=== PATIENT | female | born 1960 | race Caucasian/White ===

== ENCOUNTER 2021-08-24 14:59 | Emergency (ER) | payer BC ==
[2021-08-24 15:07] VITALS: RESP 18; TEMP 97.7
--- NOTE | 2021-08-24 17:13 | ED ---
General Adult HPI - General Chief complaint: Upper Respiratory Infection Stated complaint: covid+/wants infusion Time Seen by Provider: 08/24/21 17:00 Source: patient, RN notes reviewed, old records reviewed Mode of arrival: ambulatory Limitations: no limitations - History of Present Illness Initial comments: Well-appearing 60-year-old female, alert and oriented 4, presents to the emergency room with complaints of testing positive for coronavirus on Wednesday. Patient states that her symptoms are mild and started on Wednesday with burning, runny nose and headache. She states that she has no symptoms at this time. She took another test on Wednesday to confirm that the test was actually positive and it was positive. She has not been vaccinated. She has no medical history, she does not take any medications on a daily basis other than vitamin C, vitamin D and zinc and tumeric. She is a nonsmoker. -: days(s) (7) Severity scale (1-10): 0 Associated Symptoms: denies other symptoms Treatments Prior to Arrival: other (tylenol) - Related Data Allergies Allergy/AdvReac Type Severity Reaction Status Date / Time No Known Allergies Allergy Verified 08/24/21 15:07 Review of Systems ROS Statement: Those systems with pertinent positive or pertinent negative responses have been documented in the HPI. ROS Other: All systems not noted in ROS Statement are negative. Past Medical History Past Medical History: No Reported History History of Any Multi-Drug Resistant Organisms: None Reported Past Surgical History: Tubal Ligation Past Psychological History: Anxiety Smoking Status: Current every day smoker Past Alcohol Use History: None Reported Past Drug Use History: None Reported General Exam Limitations: no limitations General appearance: alert, in no apparent distress Head exam: Present: atraumatic, normocephalic, normal inspection Eye exam: Present: normal appearance, EOMI ENT exam: Present: normal exam, normal oropharynx, mucous membranes moist Neck exam: Present: normal inspection, full ROM. Absent: tenderness, meningismus, lymphadenopathy, thyromegaly Respiratory exam: Present: normal lung sounds bilaterally. Absent: respiratory distress, wheezes, rales, rhonchi, stridor, chest wall tenderness, accessory muscle use Cardiovascular Exam: Present: regular rate, normal rhythm, normal heart sounds. Absent: systolic murmur, diastolic murmur, rubs, gallop, clicks GI/Abdominal exam: Present: soft, normal bowel sounds. Absent: distended, tenderness, guarding, rebound, rigid Extremities exam: Present: normal inspection, full ROM, normal capillary refill. Absent: tenderness, pedal edema, joint swelling, calf tenderness Back exam: Present: normal inspection, full ROM. Absent: tenderness, CVA tenderness (R), CVA tenderness (L), rash noted Neurological exam: Present: alert, oriented X3, normal gait Psychiatric exam: Present: normal affect, normal mood Skin exam: Present: warm, dry, intact, normal color. Absent: rash Course Vital Signs 08/24/21 08/24/21 15:03 17:23 Temperature 97.7 F Pulse Rate 78 80 Respiratory 18 18 Rate Blood Pressure 178/85 143/83 O2 Sat by Pulse 99 98 Oximetry Medical Decision Making - Medical Decision Making Patient presents to the emergency room with complaints of testing positive for coronavirus on Wednesday and again on Wednesday. She states that her symptoms started on Wednesday with a headache and a runny nose have since resolved. She states she took an additional test on Wednesday to confirm that she was actually positive since she had no symptoms and it was positive. She is coming to the emergency room by suggestion of family to get monoclonal antibodies since she has not been vaccinated. I did explain to the patient that she has no medical history and does not meet criteria for monoclonal antibodies. She is a nonsmoker. Does not take any prescribed medications on a daily basis. She is 7 days from initial symptom onset and is symptom free at this time. She is agreeable to being discharged home and follow up with primary care doctor as needed. She states that she does have a primary care doctor appointment in November. I did tell her to return to the emergency room with any new or worsening symptoms. Case was discussed with Dr. Schulte. Disposition Clinical Impression: COVID-19 Disposition: HOME SELF-CARE Condition: Good Instructions (If sedation given, give patient instructions): Coronavirus Disease 2019 (COVID-19) Additional Instructions: Continue taking your vitamin C, vitamin D and zinc. Return to the emergency room with any new or concerning symptoms. Self quarantine for 10 days from symptom onset and 24 hours without. Is patient prescribed a controlled substance at d/c from ED?: No Time of Disposition: 17:12
[2021-08-24 17:34] VITALS: BP 143/83; PULSE 80
== END 2021-08-24 17:30 | disposition home or self-care (01) ==
LOC: EC 14:59
DX: U07.1 COVID-19 (principal); F41.9 Anxiety disorder, unspecified; F17.200 Nicotine dependence, unspecified, uncomplicated; Z98.51 Tubal ligation status
CPT/HCPCS: 99283

== ENCOUNTER → 2021-12-19 | Outpatient (CLI) | payer BC ==
--- NOTE | 2021-12-19 08:40 | XR ---
EXAMINATION TYPE: XR foot complete RT DATE OF EXAM: 12/19/2021 CLINICAL HISTORY: Palpable bump for several weeks at base of fifth metatarsal TECHNIQUE: Frontal, lateral, and oblique images of the right foot are obtained. COMPARISON: None FINDINGS: Focal approximately 1.3 cm soft tissue prominence along the lateral aspect of the fifth me tatarsal head on frontal and oblique images less well-seen on lateral view. No adjacent osseous erosi on or bony destruction. There is no acute fracture/dislocation evident in the right foot. Slight valencia ux valgus positioning first metatarsophalangeal joint. Tiny inferior calcaneal spur. IMPRESSION: As above. Soft tissue lesion thought present. Need to further investigate with ultrasound and/or MRI should be based on clinical correlation.
== END | disposition home or self-care (01) ==
LOC: RADXRMAIN 07:26
PROVIDERS: ATTEND Internal Medicine
DX: M79.89 Other specified soft tissue disorders (principal)

== ENCOUNTER → 2022-01-06 | Outpatient (CLI) | payer BC ==
--- NOTE | 2022-01-21 12:31 | MM ---
Reason for exam: screening (asymptomatic). Last mammogram was performed 1 year and 4 months ago. History: Patient is postmenopausal. Physical Findings: A clinical breast exam by your physician is recommended on an annual basis and results should be correlated with mammographic findings. MG Screening Mammo w CAD Bilateral CC and MLO view(s) were taken. Prior study comparison: September 16, 2020, mammogram, performed at [place]. July 24, 2019, mammogram, performed at [place]. The breast tissue is heterogeneously dense. This may lower the sensitivity of mammography. Focal asymmetry inner upper left breast zone A/B. ASSESSMENT: Incomplete: need additional imaging evaluation, BI-RAD 0 RECOMMENDATION: Special view mammogram of the left breast. If lesion persists on supplemental views, image directed ultrasound is recommended. [facility] will attempt to contact patient to return for supplemental views and ultrasound if indicated.
== END | disposition home or self-care (01) ==
LOC: RADMAMWWP 08:57
PROVIDERS: ATTEND Internal Medicine
DX: Z12.31 Encounter for screening mammogram for malignant neoplasm of breast (principal); Z78.0 Asymptomatic menopausal state
CPT/HCPCS: 77067

== ENCOUNTER → 2022-02-03 | Outpatient (CLI) | payer BC ==
--- NOTE | 2022-02-03 14:04 | MM ---
Reason for exam: additional evaluation requested from abnormal screening. Last mammogram was performed 1 month ago. History: Patient is postmenopausal. Physical Findings: A clinical breast exam by your physician is recommended on an annual basis and results should be correlated with mammographic findings. MG 3D Work Up W/Cad LT Spot compression CC and LM view(s) were taken of the left breast. Prior study comparison: January 06, 2022, bilateral MG screening mammo w CAD. September 16, 2020, mammogram, performed at [place]. The breast tissue is heterogeneously dense. This may lower the sensitivity of mammography. No distinct lesion persists on additional images. Results were given to the patient verbally at the time of the exam. ASSESSMENT: Negative, BI-RAD 1 RECOMMENDATION: Return to routine screening mammogram schedule for both breasts. Back on schedule.
== END | disposition home or self-care (01) ==
LOC: RADMAMWWP 13:13
PROVIDERS: ATTEND Internal Medicine
DX: R92.8 Other abnormal and inconclusive findings on diagnostic imaging of breast (principal); Z78.0 Asymptomatic menopausal state
CPT/HCPCS: 77061; 77065

== ENCOUNTER → 2023-02-18 | Outpatient (CLI) | payer OTHER ==
--- NOTE | 2023-02-18 19:21 | MM ---
Reason for Exam: Screening (asymptomatic). Last mammogram was performed 1 year(s) and 1 month(s) ago. Patient History: Menarche at age 14. First Full-Term at age 21. Postmenopausal. Patient has history of breast feeding. Risk Values: Estelita 5 year model risk: 1.3%. NCI Lifetime model risk: 6.4%. Prior Study Comparison: 07/24/2019 Screening Mammogram, [place]. 09/16/2020 Screening Mammogram, [place]. 01/06/2022 Bilateral Screening Mammogram, [facility]. 02/03/2022 Left Diagnostic Mammogram, [facility]. Tissue Density: The breast tissue is heterogeneously dense. This may lower the sensitivity of mammography. Findings: Analyzed By CAD. There is no suspicious group of microcalcifications or new suspicious mass in either breast. Overall Assessment: Negative, BI-RAD 1 Management: Screening Mammogram of both breasts in 1 year. . Patient should continue monthly self-breast exams. A clinical breast exam by your physician is recommended on an annual basis. This exam should not preclude additional follow-up of suspicious palpable abnormalities. Note on Estelita scores and lifetime risk: 1. A Estelita score greater than 3% is considered moderate risk. If this is the case, consider specialist referral to assess eligibility for a risk reducing agent. 2. If overall lifetime risk for the development of breast cancer is 20% or higher, the patient may qualify for future screening with alternating mammogram and breast MRI. Electronically signed and approved by: Scooter Ahumada M.D. Radiologist
== END | disposition home or self-care (01) ==
LOC: RADMAMWWP 07:47
PROVIDERS: ATTEND Internal Medicine
DX: Z12.31 Encounter for screening mammogram for malignant neoplasm of breast (principal); Z78.0 Asymptomatic menopausal state
CPT/HCPCS: 77063; 77067

== ENCOUNTER 2023-07-06 08:34 | Day surgery (SDC) | payer OTHER ==
[2023-07-02 08:51] VITALS: BMI 24.7
[~2023-07-06 08:34] MED LIST: LACTATED RINGERS 1,000 ML IV SCH
[2023-07-06 09:04] VITALS: TEMP 97
[2023-07-06] MEDS ORDERED: PROPOFOL 10 MG/ML 20 ML VIAL IV ONE (09:53)
--- NOTE | 2023-07-06 10:16 | P.PCN ---
Date of Procedure: 07/06/23 Procedure(s) Performed: BRIEF HISTORY: Patient is a 62-year-old pleasant female scheduled for an elective colonoscopy as a part of screening for colon cancer. PROCEDURE PERFORMED: Colonoscopy. PREOPERATIVE DIAGNOSIS: Screening for colon cancer. IV sedation per Anesthesia. PROCEDURE: After informed consent was obtained, the patient, was brought into the endoscopy unit. IV sedation was administered by Anesthesia under continuous monitoring. Digital rectal examination was normal. Initially the Olympus CF-160 flexible video colonoscope was then inserted in the rectum, gradually advanced into the cecum without any difficulty. Careful examination was performed as the scope was gradually being withdrawn. Ileocecal valve and the appendiceal orifice were visualized and appeared normal. Prep was excellent. Mucosa of the cecum, ascending colon, transverse colon, descending colon, sigmoid colon, and rectum appeared normal. At her sigmoid diverticula cyst. Retroflexion was performed in the rectum and no lesions were seen. The patient tolerated the procedure well. IMPRESSION: Normal-appearing colon from rectum to cecum with no evidence of colorectal neoplasia. Scattered sigmoid diverticulosis RECOMMENDATIONS: Findings of this examination were discussed with the patient as well as her family. She was advised to have a repeat screening colonoscopy in 10 years..
[2023-07-06 10:41] VITALS: BP 129/66; PULSE 45; RESP 18
== END 2023-07-06 11:00 | disposition home or self-care (01) ==
LOC: ORWHC2ENDO 08:34
PROVIDERS: ATTEND Internal Medicine Gastroenterology
DX: Z12.11 Encounter for screening for malignant neoplasm of colon (principal); K57.30 Diverticulosis of large intestine without perforation or abscess without bleeding; E78.5 Hyperlipidemia, unspecified; Z91.013 Allergy to seafood; Z91.041 Radiographic dye allergy status; Z79.899 Other long term (current) drug therapy
CPT/HCPCS: 45378; J2704

== ENCOUNTER → 2023-12-14 | Outpatient (CLI) | payer OTHER ==
--- NOTE | 2023-12-14 15:36 | US ---
EXAMINATION TYPE: US carotid duplex BILAT DATE OF EXAM: 12/14/2023 COMPARISON: NONE CLINICAL INDICATION: Female, 63 years old with dizziness, history of I65.23 BILATERAL CAROTID ARTERY STENOSIS TECHNIQUE: Carotid duplex ultrasound examination. Indirect Doppler criteria was utilized. FINDINGS: EXAM MEASUREMENTS: RIGHT: Peak Systolic Velocity (PSV) cm/sec ----- Right CCA: 77.6 ----- Right ICA: 95.2 ----- Right ECA: 92.7 ICA/CCA ratio: 1.2 RIGHT: End Diastole cm/sec ----- Right CCA: 23.7 ----- Right ICA: 36.9 ----- Right ECA: 16.3 LEFT: Peak Systolic Velocity (PSV) cm/sec ----- Left CCA: 86.0 ----- Left ICA: 110.6 ----- Left ECA: 20.4 ICA/CCA ratio: 1.3 LEFT: End Diastole cm/sec ----- Left CCA: 28.4 ----- Left ICA: 42.4 ----- Left ECA: 20.4 VERTEBRALS (direction of flow): Right Vertebral: Antegrade Left Vertebral: Antegrade Rhythm: Normal [employer] NOTES: No significant stenosis seen IMPRESSION: No hemodynamically significant internal carotid artery stenosis on either side. Criteria for Assigning % of Stenosis / Diameter reduction (Estimation based on the indirect measurements of the internal carotid artery velocities (ICA PSV). 1. Normal (no stenosis)=ICA PSV < 125 cm/s: ratio < 2.0: ICA EDV<40 cm/s. 2. Less than 50% stenosis=ICA PSV < 125 cm/s: ratio < 2.0: ICA EDV<40 cm/s. 3. 50 to 69% stenosis=ICA PSV of 125 to 230 cm/s: ration 2.0 ? 4.0: ICA EDV 40-100 cm/s. 4. Greater than 70% stenosis to near occlusion= ICA PSV > 230 cm/s: ratio > 4.0: ICA EDV > 100 cm/s. 5. Near occlusion= ICA PSV velocities may be low or undetectable: variable ratio and ICA EDV. 6. Total occlusion=unable to detect flow.
--- NOTE | 2023-12-14 19:16 | BD ---
EXAMINATION TYPE: Axial Bone Density DATE OF EXAM: 12/14/2023 CLINICAL HISTORY: 63 years old Female. ICD-10 CODE: M85.851 OSTEOPENIA OF RIGHT HIP Height: 67.5 Weight: 171 FRAX RISK QUESTIONS: Family History (Parent hip fracture): no History of Fracture in Adulthood: no Secondary Osteoporosis: no RISK FACTORS HISTORY OF: Surgery to Spine/Hip(right/left)/Wrist (right/left): no MEDICATIONS: Thyroid Medications: no Osteoporosis Medications: no EXAM MEASUREMENTS: Bone mineral densitometry was performed using the [employer]. Bone mineral density as measured about the Lumbar spine is: ----- L1-L4(G/cm2): 1.140 T Score Values are as follows: ----- L1: -0.5 ----- L2: -0.4 ----- L3: -0.5 ----- L4: -0.2 ----- L1-L4: -0.3 Z Score Values are as follows: ----- L1: 0.4 ----- L2: 0.5 ----- L3: 0.4 ----- L4: 0.8 ----- L1-L4: 0.6 Bone mineral density baseline Bone mineral density about the R hip (g/cm2): 1.036 Bone mineral density about the L hip (g/cm2): 1.062 T Score values are as follows: -----R Neck: -0.9 -----L Neck: -0.6 -----R Total: 0.2 -----L Total: 0.4 Z Score values are as follows: -----R Neck: 0.1 -----L Neck: 0.5 -----R Total: 1.0 -----L Total: 1.2 Bone mineral density baseline FRAX%s: The graph provided illustrates a 7.4% chance for a major osteoporotic fx and a 0.4% chance fo r the hips probability for fx in 10 years time. IMPRESSION: Normal (Values between +1 and -1 indicate normal bone mass). Consider repeating this study in 5 year s or sooner if there is some new clinical indication. NOTE: T-SCORE=SD OF THE YOUNG ADULT MEAN.
== END | disposition home or self-care (01) ==
LOC: RADUSWWP 08:56
PROVIDERS: ATTEND Internal Medicine
DX: Z12.31 Encounter for screening mammogram for malignant neoplasm of breast (principal); M85.851 Other specified disorders of bone density and structure, right thigh; I34.0 Nonrheumatic mitral (valve) insufficiency; Z12.2 Encounter for screening for malignant neoplasm of respiratory organs; I65.23 Occlusion and stenosis of bilateral carotid arteries
CPT/HCPCS: 77080; 93880

== ENCOUNTER → 2024-08-16 | Outpatient (CLI) | payer OTHER ==
--- NOTE | 2024-08-18 23:17 | MM ---
Reason for Exam: Screening (asymptomatic). Last mammogram was performed 1 year(s) and 6 month(s) ago. Patient History: Menarche at age 14. First Full-Term at age 21. Postmenopausal. Patient has history of breast feeding. Risk Values: Estelita 5 year model risk: 1.4%. NCI Lifetime model risk: 6.2%. Prior Study Comparison: 01/06/2022 Bilateral Screening Mammogram, [facility]. 02/03/2022 Left Diagnostic Mammogram, [facility]. 02/18/2023 Bilateral MG 3D screening mammo w/cad, [facility]. Tissue Density: The breasts are heterogeneously dense, which may obscure small masses. Findings: Analyzed By CAD. The pattern is symmetrical. No significant interval change is evident No suspicious groups of microcalcifications, spiculated or lobular masses, architectural distortion or other secondary signs of malignancy are mammographically apparent. Overall Assessment: Benign, BI-RAD 2 Management: Screening Mammogram of both breasts in 1 year. A negative mammogram report should not preclude additional follow up of suspicious palpable abnormalities. Patient should continue monthly self breast exam. A clinical breast exam by your physician is recommended on an annual basis and results should be correlated with mammographic findings. Note on Estelita scores and lifetime risk: 1. A Estelita score greater than 3% is considered moderate risk. If this is the case, consider specialist referral to assess eligibility for a risk reducing agent. 2. If overall lifetime risk for the development of breast cancer is 20% or higher, the patient may qualify for future screening with alternating mammogram and breast MRI. [facility], , 08/18/2024 11:14 PM. Electronically signed and approved by: Joao Scott D.O. Radiologis
== END | disposition home or self-care (01) ==
LOC: RADMAMWWP 08:40
PROVIDERS: ATTEND Internal Medicine
DX: Z12.31 Encounter for screening mammogram for malignant neoplasm of breast (principal); R92.333 Mammographic heterogeneous density, bilateral breasts; Z78.0 Asymptomatic menopausal state
CPT/HCPCS: 77063; 77067

== ENCOUNTER 2025-02-15 18:44 | Emergency (ER) | payer OTHER ==
[2025-02-15 18:52] VITALS: TEMP 97.4
[2025-02-15 19:18] LABS: Basophils # (A) 0.03 10*3/uL (0.00-0.10); Basophils % (A) 0.4 %; Eosinophils # (A) 0.09 10*3/uL (0.04-0.35); Eosinophils % (A) 1.2 %; HCT 40.5 % (37.2-46.3); HGB 13.6 g/dL (12.0-15.0); Lymphocytes # (A) 2.92 10*3/uL (0.90-5.00); Lymphocytes % (A) 40.2 %; MCH 32.3 pg (27.0-32.0); MCHC 33.6 g/dL (32.0-37.0); MCV 96.2 fL (80.0-97.0); Mean Platelet Volume 9.2 fL (9.5-12.2); Monocytes # (A) 0.63 10*3/uL (0.20-1.00); Monocytes % (A) 8.7 %; Neutrophils # (A) 3.58 10*3/uL (1.80-7.70); Neutrophils % (A) 49.2 %; Platelet Count 247 10*3/uL (140-440); RBC 4.21 10*6/uL (4.10-5.20); RDW 12.3 % (11.5-14.5); WBC 7.27 10*3/uL (4.50-10.00)
[2025-02-15 19:34] LABS: ALT 27 U/L (4-34); African American GFR (CKD) >90 (>60 ml/min/1.73 sqM); Albumin 4.5 g/dL (3.5-5.0); Anion Gap 6 mmol/L; Blood Urea Nitrogen 21 mg/dL (7-17); Calcium 9.5 mg/dL (8.4-10.2); Carbon Dioxide 27 mmol/L (22-30); Chloride 105 mmol/L (98-107); Glucose 86 mg/dL (74-99); Non-African American GFR(CKD) 82 (>60 ml/min/1.73 sqM); Sodium 138 mmol/L (137-145); Total Bilirubin 0.6 mg/dL (0.2-1.3); Total Protein 7.3 g/dL (6.3-8.2)
[2025-02-15 19:36] LABS: INR 0.9 (<1.2); Prothrombin Time 10.2 sec (10.0-12.5)
[2025-02-15 19:39] LABS: AST 36 U/L (14-36); Alkaline Phosphatase 81 U/L (38-126); Magnesium 2.1 mg/dL (1.6-2.3); Potassium 4.5 mmol/L (3.5-5.1)
[2025-02-15 19:44] LABS: Partial Thromboplastin Time 20.3 sec (22.0-30.0)
--- NOTE | 2025-02-15 19:44 | XR ---
EXAMINATION TYPE: XR chest 2V DATE OF EXAM: 02/15/2025 7:39 PM COMPARISON: Chest radiographs from 04/22/2013 TECHNIQUE: XR chest 2V Frontal and lateral views of the chest. CLINICAL INDICATION:Female, 64 years old with history of Chest Pain; FINDINGS: Lungs/Pleura: There is no evidence of pleural effusion, focal consolidation, or pneumothorax. Pulmonary vascularity: Unremarkable. Heart/mediastinum: Cardiomediastinal silhouette is unremarkable. Atherosclerotic calcifications are seen in the aorta. Musculoskeletal: No acute osseous pathology. IMPRESSION: No acute cardiopulmonary disease/process. [facility], , 02/15/2025 7:42 PM
--- NOTE | 2025-02-15 19:50 | ED ---
Chest Pain HPI - General Source: patient, RN notes reviewed Mode of arrival: ambulatory Limitations: no limitations - History of Present Illness MD Complaint: chest pain <Lenora Mckeon - Last Filed: 02/15/25 19:49> <Tr Velarde - Last Filed: 02/15/25 23:28> - General Chief Complaint: Chest Pain Stated Complaint: chest pain Time Seen by Provider: 02/15/25 19:20 - History of Present Illness Initial Comments: Quick Note: This is a 64-year-old female who presents to the emergency department for chest pain. States that it started around 4 PM when she was at work. Pain is described as a centralized aching/pressure sensation. Denies any shortness of breath. Reports a history of a leaky valve but denies any history of heart attacks. (Lenora Mckeon) Dictation was produced using OneTouch dictation software. please excuse any grammatical, word or spelling errors. Chief Complaint: 64-year-old female with chest tightness History of Present Illness: Patient 64-year-old female presents to the emergency department chest tightness. Patient states her symptoms have been ongoing for the last 1 to 2 days. 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 States that it is tight tender to touch. Not associated with diaphoresis or nausea she has a remote history of hypertension and tobacco use. Denies any history of high cholesterol or diabetes. No family history of heart attacks. Patient's symptoms nonradiating. Not associate diaphoresis or nausea The ROS documented in this emergency department record has been reviewed and confirmed by me. Those systems with pertinent positive or negative responses have been documented in the HPI. All other systems are other negative and/or noncontributory. (Tr Velarde) - Related Data Home Medications Medication Instructions Recorded Confirmed LORazepam [Ativan] 0.5 mg PO BID PRN 07/02/23 07/02/23 Rosuvastatin Calcium 5 mg PO DAILY 07/02/23 07/02/23 Allergies Allergy/AdvReac Type Severity Reaction Status Date / Time iodine Allergy Anaphylaxis Verified 07/02/23 08:36 shellfish derived Allergy Anaphylaxis Verified 07/02/23 08:36 Review of Systems ROS Other: All systems not noted in ROS Statement are negative. <Lenora Mckeon - Last Filed: 02/15/25 19:49> ROS Other: All systems not noted in ROS Statement are negative. <Tr Velarde - Last Filed: 02/15/25 23:28> ROS Statement: Those systems with pertinent positive or pertinent negative responses have been documented in the HPI. Past Medical History Past Medical History: Hyperlipidemia, Hypertension History of Any Multi-Drug Resistant Organisms: None Reported Past Surgical History: Tubal Ligation Additional Past Surgical History / Comment(s): COLONOSCOPY Past Anesthesia/Blood Transfusion Reactions: No Reported Reaction Past Psychological History: Anxiety Smoking Status: Former smoker Past Alcohol Use History: None Reported Past Drug Use History: None Reported - Past Family History Mother Family Medical History: No Reported History <Lenora Mckeon - Last Filed: 02/15/25 19:49> General Exam Limitations: no limitations <Lenora Mckeon - Last Filed: 02/15/25 19:49> <Tr Velarde - Last Filed: 02/15/25 23:28> - General Exam Comments Initial Comments: Visual Physical Exam Vital signs reviewed General: Well-appearing, nontoxic, no acute distress. Head: Normocephalic, atraumatic Eyes: PERRLA, EOMI ENT: Airway patent Chest: Nonlabored breathing Skin: No visual rash, normal skin tone Neuro: Alert and oriented 3 Musculoskeletal: No gross abnormalities (Lenora Mckeon) PHYSICAL EXAM: General Impression: Alert and oriented x3, not in acute distress HEENT: Normocephalic atraumatic, extra-ocular movements intact, pupils equal and reactive to light bilaterally, mucous membranes moist. Cardiovascular: Heart regular rate and rhythm Chest: Able to complete full sentences, no retractions, no tachypnea Abdomen: abdomen soft, non-tender, non-distended, no organomegaly Musculoskeletal: Pulses present and equal in all extremities, no peripheral edema Motor: no focal deficits noted Neurological: CN II-XII grossly intact, no focal motor or sensory deficits noted Skin: Intact with no visualized rashes Psych: Normal affect and mood (Tr Velarde) Course Vital Signs 02/15/25 18:49 Temperature 97.4 F L Pulse Rate 70 Respiratory 20 Rate Blood Pressure 189/70 O2 Sat by Pulse 98 Oximetry Chest Pain MDM <Lenora Mckeon - Last Filed: 02/15/25 19:49> <Tr Velarde - Last Filed: 02/15/25 23:28> - [facility] I performed the QuickNote portion of this chart. Signed Lenora Mckeon PA-C. (Lenora Mckeon) My EKG interpretation: Ventricular rate 65, sinus rhythm, CA 173, QRS 79, QTc 399. No CA prolongation, no QTC prolongation, no ST or T-wave changes noted. Overall, this EKG is unremarkable Was pt. sent in by a medical professional or institution ([facility], MAINTENANCE TECH, urgent care, hospital, or [place] health care facility...) When possible be specific @ -No Did you speak to anyone other than the patient for history (EMS, parent, family, police, friend...)? What history was obtained from this source @ -No Did you review nursing and triage notes (agree or disagree)? Why? @ -I reviewed and agree with nursing and triage notes Were old charts reviewed (outside hosp., previous admission, EMS record, old EKG, old radiological studies, urgent care reports/EKG's, [place] health care facility records)? Report findings @ -No old charts were reviewed Differential Diagnosis (chest pain, altered mental status, abdominal pain women, abdominal pain men, vaginal bleeding, musculoskeletal, weakness, fever, dyspnea, syncope, headache, dizziness, GI bleed, back pain, seizure, CVA, palpatations, mental health)? @ -Differential Chest Pain: Stable Angina, Unstable Angina, STEMI, NSTEMI Aortic Dissection, Pneumothorax, Musculoskeletal, Esophageal Spasm GERD, Cholecystitis, Pancreatitis, Zoster, this is not meant to be an all-inclusive list. EKG interpreted by me (3pts min.). @ -As above X-rays interpreted by me (1pt min.). @ -Chest x-ray is nonacute CT interpreted by me (1pt min.). @ -None done U/S interpreted by me (1pt. min.). @ -None done What testing was considered but not performed or refused? (CT, X-rays, U/S, la bs)? Why? @ -None What meds were considered but not given or refused? Why? @ -None Was smoking cessation discussed for >3mins.? @ -No Were there social determinants of health that impacted care today? How? (Homelessness, low income, unemployed, alcoholism, drug addiction, transportation, low edu. Level, literacy, decrease access to med. care, intermediate, rehab)? @ -No Was there de-escalation of care discussed even if they declined (Discuss DNR or withdrawal of care, Hospice)? DNR status @ -No What co-morbidities impacted this encounter? (DM, HTN, Smoking, COPD, CAD, Cancer, CVA, ARF, Chemo, Hep., AIDS, mental health diagnosis, sleep apnea, morbid obesity)? @ -None Was patient admitted / discharged? Hospital course, mention meds given and route, prescriptions, significant lab abnormalities, going to OR and other pertinent info. @ -64-year-old female with atypical chest pain typical features. Vital signs stable. Patient does have some heart score risk. Laboratory evaluation obtained. Labs unremarkable. 2 troponins negative. Patient offered observation admission however would prefer to follow-up with cardiology for outpatient workup. Patient well-appearing patient given aspirin and referral to cardiology. Did you discuss the management of the patient with other professionals (professionals i.e. , PA, MAINTENANCE TECH, lab, RT, psych nurse, home health care social worker, supervisor wet pour, teacher, product safety officer, oil field caser)? Give summary @ -No Was critical care preformed (if so, how long)? @ -No Undiagnosed new problem with uncertain prognosis? @ -No Drug Therapy requiring intensive monitoring for toxicity (Heparin, Nitro, Insulin, Cardizem)? @ -No Were any procedures done? @ -No Diagnosis/symptom? Acute, or Chronic, or Acute on Chronic? Uncomplicated (without systemic symptoms) or Complicated (systemic symptoms)? @ -Chest pain Side effects of treatment? @ -No Exacerbation, Progression, or Severe Exacerbation? @ -No Poses a threat to life or bodily function? How? (Chest pain, [place], [place], pneumonia, PE, COPD, DKA, ARF, appy, cholecystitis, CVA, Diverticulitis, Homicidal, Suicidal, threat to staff... and all critical care pts) @ -yes (Tr Velarde) Disposition <Lenora Mckeon - Last Filed: 02/15/25 19:49> Is patient prescribed a controlled substance at d/c from ED?: No <Tr Velarde - Last Filed: 02/15/25 23:28> Clinical Impression: Chest pain Disposition: HOME SELF-CARE Condition: Fair Instructions (If sedation given, give patient instructions): Chest Pain (ED) Referrals: Keyur Varma MD [Primary Care Provider] - 1-2 days Javi Bernal MD [STAFF PHYSICIAN] - 1-2 days
[2025-02-15] MEDS: ASPIRIN 81 MG PO STA (22:27)
[2025-02-15] MEDS: KETOROLAC 15 MG/ML 1 ML VIAL IVP STA (22:28)
[2025-02-15 23:43] VITALS: BP 164/86; PULSE 64; RESP 18
== END 2025-02-15 23:43 | disposition home or self-care (01) ==
LOC: EC 18:44
DX: R07.9 Chest pain, unspecified (principal); Z87.891 Personal history of nicotine dependence; Z91.013 Allergy to seafood; Z91.041 Radiographic dye allergy status
CPT/HCPCS: 36415; 93005; 80053; 83735; 84484; 85025; 85610; 85730; 71046; 99285; 96374; J1885

== ENCOUNTER → 2025-02-19 | Outpatient (CLI) | payer OTHER ==
--- NOTE | 2025-02-19 13:02 | XR ---
EXAMINATION TYPE: XR cervical spine w flex/ext DATE OF EXAM: 02/19/2025 TECHNIQUE: Frontal, lateral, oblique, flexion and extension lateral, and open mouth view of the cervi frieda spine are obtained. 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 More prominent grade 1 retrolisthesis C5 on C6. The pre-vertebral soft tis татьяна appears within normal limits. The C1-C2 articulation is within normal limits on the open mouth v iew. Vertebral body heights are maintained. There is moderate disc space narrowing and spurring at C5 -C6 level which is more prominent from prior. Dynamic imaging shows limited extension without change in alignment. Multilevel uncovertebral facet degenerative changes are present bilaterally causing mul tilevel neural foraminal narrowing seen best on the oblique images. Overlying soft tissue is unremark able. IMPRESSION: As above. [facility], , 02/19/2025 1:00 PM
== END | disposition home or self-care (01) ==
LOC: RADXRMAIN 12:05
PROVIDERS: ATTEND Internal Medicine
DX: M47.812 Spondylosis without myelopathy or radiculopathy, cervical region (principal); M43.12 Spondylolisthesis, cervical region
CPT/HCPCS: 72052